=== PATIENT | female | born 1950 | race Caucasian/White ===

== ENCOUNTER 2019-05-06 17:55 | Emergency (ER) | payer MEDICARE, MEDICAID ==
[~2019-05-06] VITALS: Ht 162.6 cm; Wt 72.7 kg
[2019-05-06 20:01] LABS: CLARITY,URINE TURBID (Clear); COLOR,URINE AMBER (Yellow); GLUCOSE, URINE NEGATIVE (Neg); KETONES,URINE NEGATIVE (Neg); LEUKOCYTE ESTERASE ,URINE LARGE (Neg); NITRITES, URINE NEGATIVE (Neg); OCCULT BLOOD,URINE LARGE (Neg); PH,URINE 6.5 (4.8-8.0); PROTEIN,URINE 100 mg/dl (Neg); UROBILINOGEN,URINE >=8.0 E.U/dL (0.2-1.0)
[2019-05-06 20:06] LABS: UA COLLECTION TYPE CLN CATCH MIDSTREAM
[2019-05-06 20:07] LABS: BACTERIA,URINE 3+ /HPF (Neg); MUCUS STRANDS NONE SEEN /LPF (Neg); SQUAMOUS EPITHELIAL CELL,UR MODERATE /LPF (FEW); WBC,URINE TNTC /HPF (0-4)
[2019-05-06] MEDS ORDERED: nitrofuran/nitrofuran macrocrysal 100 MG capsule PO ONE (20:45)
[2019-05-06] MEDS ORDERED: HYDROcodone/acetaminophen 5mg/325mg tablet PO ONE (20:45)
[2019-05-06] MEDS ORDERED: HYDR-3965 PO (20:50)
[2019-05-06] MEDS ORDERED: NITR100C6 PO (20:52)
[2019-05-06 21:10] VITALS: BP 142/73
--- NOTE | 2019-05-12 09:38 | NUR ---
CALLED LEFT MESSAGE.... I NEED PHARMACY TO CALL IN BACTRIM DS 160MG TMP PO Q 12 HOURS X 7 DAYS
--- NOTE | 2019-05-13 20:13 | NUR ---
ATTEMPTED TO REACH PT WITH URINE CULTURE RESULT AND TO CHANGE ABX ORDER UNABLE TO REACH PT LEFT MESSAGE.
--- NOTE | 2019-05-14 19:51 | NUR ---
ATTEMPTED TO REACH PT WITH URINE CULTURE RESULT AND TO CHANGE ABX ORDER UNABLE TO REACH PT LEFT MESSAGE. LETTER SENT.
== END 2019-05-07 02:49 | disposition home or self-care (01) ==
LOC: ER 17:56
DX: G89.18 Other acute postprocedural pain (principal); N39.0 Urinary tract infection, site not specified; Z98.890 Other specified postprocedural states; Z88.5 Allergy status to narcotic agent; Z79.899 Other long term (current) drug therapy
CPT/HCPCS: 73502; 81001; 82948; 87077; 87088; 87186; 99284